=== PATIENT | female | born 1955 | race Caucasian/White ===

== ENCOUNTER 2018-09-07 05:32 | Observation (INO) ==
[2018-09-07] MEDS ORDERED: 0.9 % Sodium Chloride 1,000 ML IVC ONE (06:14)
--- NOTE | 2018-09-07 06:16 | Emergency Department Note ---
Disposition Clinical Impression: Vertigo, Bacteriuria with pyuria Disposition: Admitted As Inpatient Condition: Good Time of Disposition: 08:36 Dizziness HPI - General Chief Complaint: ED Dizziness Stated Complaint: dizziness/vomiting Time Seen by Provider: 09/07/18 06:03 Source: patient, family Mode of arrival: private vehicle Limitations: no limitations Nursing Notes Reviewed: Yes Vital Signs Reviewed: Yes - History of Present Illness HPI Narrative: Patient presents from home with family for eval of vertigo that began acutely at 4:00am. It woke her from sleep. She was unable to get out of bed initially, and when she did get up she began vomiting. Once the vomiting stopped and symptoms improved enough that she could get to the car, she was brought here. She has a dull, frontal headache. No other pain. She has had vertigo with vomiting in the past, 10 yrs ago when she had chemo. She has had headaches like this before as well. She denies chest pain, dyspnea, fever, chills, abdominal pain, diarrhea, dehydration, vision changes, syncopy, recent illness, infection or travel. Pt Subjective Complaint: dizziness Onset (ago): hour(s) (4am) Timing: sudden onset, now resolved Description: "room spinning" History of similar episodes: Yes (10 yrs ago during chemotherapy) History of trauma: No Severity: severe, now resolved Improves with: nothing ("It just got better") Worsens with: movement (It was worse when trying to move or get up) Associated symptoms: Reports: nausea, vomiting (Once able to get out of bed, began vomiting. Had 3 episodes of non-bilious, non-bloody emesis.). Denies: chest pain, confusion, diaphoresis, fever, chills, malaise, rash, shortness of breath, syncope, weakness, vision changes, palpitations, other - Related Data Home Medications Medication Instructions Recorded Confirmed Lisinopril [Zestril] 10 mg PO DAILY 09/07/18 09/07/18 Vilazodone HCl [Viibryd] 20 mg PO DAILY 09/07/18 09/07/18 Allergies Allergy/AdvReac Type Severity Reaction Status Date / Time Cefprozil [From Cefzil] Allergy Hives Verified 09/07/18 05:45 cephalexin [From Keflex] Allergy Hives Verified 09/07/18 05:45 All systems ED: reviewed and negative except as stated. Review of Systems: As Per HPI Constitutional: Denies: fever, chills, weakness, night sweats Eyes: Denies: eye pain, eye discharge, vision change ENT ED: Denies: ear pain, throat pain, hearing loss, congestion, dysphagia Cardiovascular: Denies: chest pain, palpitations, dyspnea on exertion, orthopnea, edema, syncope Respiratory: Denies: cough, dyspnea, wheezes, hemoptysis Gastrointestinal: Reports: as per HPI, nausea (resolved), vomiting (resolved). Denies: abdominal pain, diarrhea, constipation, hematemesis Genitourinary: Denies: urgency, dysuria, frequency Musculoskeletal: Reports: joint swelling (mild, right ankle - Fx 9 weeks ago), arthralgia (Mild, right ankle), other ("Right thigh is still a little sore, but much better" - DVT 6 weeks ago - Xarelto x 4 weeks then told to stop). Denies: back pain, neck pain Integumentary: Denies: rash, lesions Neurological: Reports: as per HPI, headache, vertigo (no resolved). Denies: weakness, numbness, paresthesias, confusion, abnormal gait Endocrine: Denies: fatigue Past Medical History - Past Medical History Attestation: Yes The following information was validated with the patient. Source: patient Medical history: Reports: cancer (Breast - 10yrs ago; in remission), DVT, hy perlipidemia (Stopped Atorvastatin 2 weeks ago due to leg cramps), hypertension, pulmonary embolus, other Surgical history: Reports: non-contributory Psychiatric history: Reports: no psych history SCRUMMASTER history: Reports: bilateral tubal ligation - Social History Smoking Status: Never smoker Smokeless Tobacco Status: No Alcohol use: Reports: none Drug use: Reports: none Physical Exam - General Limitations: no limitations General appearance: alert, in no apparent distress - Head Head exam: atraumatic, normocephalic, normal inspection - Eye Eye exam: Present: normal appearance, PERRL, EOMI. Absent: scleral icterus, conjunctival injection, nystagmus, miosis, mydriasis, periorbital swelling, periorbital tenderness - ENT ENT exam: normal exam, normal oropharynx, mucous membranes moist - Neck Neck exam: Present: normal inspection, full ROM, trachea midline. Absent: tenderness, meningismus, lymphadenopathy - Expanded Neck Exam Neck exam focused ED: Absent: anterior neck swelling, thyroid enlargement, JVD, carotid bruit - Respiratory Respiratory exam: Present: normal lung sounds bilaterally. Absent: respiratory distress, wheezes, stridor - Cardiovascular Cardiovascular exam: Present: regular rate, normal rhythm, normal heart sounds - Abdominal Exam Abdominal exam: Present: soft, Non-Tender. Absent: distention, guarding, rebound, mass - Extremities Exam Extremities exam: Present: full ROM, normal capillary refill, joint swelling (mild, right ankle). Absent: calf tenderness - Back Exam Back exam: Present: normal inspection - Neurological Exam Neurological exam: Present: alert, oriented X3, CN II-XII intact, other (Patient felt very dizzy when she stood up for gait assessment and Romberg. Unable to assess at this time.). Absent: motor sensory deficit - Expanded Neurological Exam Patient oriented to: Present: person, place, time Speech: Present: fluid speech Cranial nerves: EOM function (II, III, IV, ): Normal, facial sensation (V): Normal, facial palsy (VII): Normal, gag reflex (IX): Normal, spinal accessory function (XI): Normal, tongue deviation (XII): Normal Cerebellar function: finger to nose: Normal, heel to hwang: Normal Motor strength - LUE: 5/5 Motor strength - RUE: 5/5 Motor strength - LLE: 5/5 Motor strength - RLE: 5/5 Upper motor neuron exam: nadia neglect: Absent bilaterally, pronator drift: Absent bilaterally, sensory extinction: Absent bilaterally Sensory exam upper extremity: light touch: Normal Sensory exam lower extremity: light touch: Normal Coma Scale Eye Opening: Spontaneous Coma Scale Motor Response: Obeys Commands Coma Scale Verbal Response: Oriented Coma Scale Total: 15 - Psychiatric Psychiatric exam: Present: normal affect, normal mood - Skin Skin exam: Present: warm, dry, intact, normal color Course Course Narrative: Patient arrived via private auto. She was brought by family. She was able to ambulate from the parking lot into the emergency department but felt very dizzy doing so. She was brought back to room three and triaged. I arrived for shift at 6 AM and immediately went to see the patient. She had been in the emergency department 26 minutes upon my arrival. She is resting comfortably on the bed and states that vertigo has resolved. It got better after lying down for several minutes. She has a dull frontal headache that does not radiate. It is similar to prior headaches. It came on gradually just prior to arrival. It is not the worst headache of life. During the exam, I helped the patient to a standing position for gait assessment and Romberg testing. Upon standing, she felt very dizzy and wanted to sit back down. This portion of the neuro exam unable to be completed at this time. A few minutes after lying back down she began to feel better. IV fluids. Labs, meds, EKG have been ordered. Case discussed with Dr. Deleon - overnight attending - at 06:16. Discussed advanced betty ging; specifically, MR of brain. He recommends ordering an non-con CT of the head. This has been ordered. Case discussed with Dr. Eun Finley. He has had face to face time with the patient and agrees with the assessment and plan. Patient feeling better as long as she is reclined on bed. When she tries to get up, she feels dizzy - not as vertiginous as this morning, but "dizzy and off balance". Headache is better. No nausea or vomiting. Vitals stable normal. Will admit for further eval and treatment. - Reevaluation(s) Reevaluation #1: Patient feeling better, but still feels "Very dizzy" when trying to get up and walk. CT head is normal per radiologist. Vitals stable. Hospitalist paged for admission. Time: 08:03 - Consultations Consultation #1: Case discussed with Dr. Kemp. She has evaluated the patient and is requesting MRI. This has been ordered. Patient accepted for admission. Time: 08:36 Vital Signs Temperature 97.7 F 09/07/18 05:48 Pulse Rate 74 09/07/18 05:48 Respiratory Rate 20 09/07/18 05:48 Blood Pressure 144/80 09/07/18 05:48 O2 Sat by Pulse Oximetry 100 09/07/18 05:48 Temperature 97.7 F 09/07/18 05:58 Pulse Rate 74 09/07/18 06:40 Respiratory Rate 20 09/07/18 05:58 Blood Pressure 132/85 09/07/18 06:40 O2 Sat by Pulse Oximetry 100 09/07/18 05:58 Oxygen Delivery Oxygen Delivery Room Air Dizziness - Medical Records Medical records reviewed: Yes I reviewed the patient's medical records. - Lab Data Result diagrams: 09/07/18 06:18 09/07/18 06:18 Lab Results 09/07/18 09/07/18 09/07/18 Range/Units 06:18 06:18 06:55 WBC 5.9 (4.3-11.1) K/mcL RBC 4.01 (3.82-4.97) M/mcL Hgb 12.6 (11.5-15.4) g/dL Hct 36.9 (35.3-44.9) % MCV 92.0 (83.0-100.0) fL MCH 31.4 (28.0-33.3) pg MCHC 34.1 (31.6-35.5) g/dL RDW 12.6 (11.5-14.5) % Plt Count 188 (140-400) K/mcL MPV 9.6 (9.4-12.4) fL Immature Gran % 0.5 (0-4) % Seg Neutrophils % 65.5 % Lymphocytes % 24.2 % Monocytes % 7.3 % Eosinophils % 2.0 % Basophils % 0.5 % Neutrophils # 3.9 (1.6-8.9) K/mcL Lymphocytes # 1.4 (0.6-4.6) K/mcL Monocytes # 0.4 (0.0-1.3) K/mcL Eosinophils # 0.1 (0.0-0.6) K/mcL Basophils # 0.0 (0.0-0.2) K/mcL Sodium 140 (136-145) mEq/L Potassium 4.2 (3.5-5.1) mEq/L Chloride 109 H (98-107) mEq/L Carbon Dioxide 20 L (23-29) mEq/L BUN 23 (8-23) mg/dL Creatinine 1.18 (0.60-1.20) mg/dL Est GFR ( Amer) 56 L (> 60) Est GFR (Non-Af Amer) 46 L (> 60) BUN/Creatinine Ratio 19 (6-26) Glucose 102 (70-105) mg/dL Calculated Osmolality 294 (280-300) Calcium 9.0 (8.6-10.3) mg/dL Total Bilirubin 0.8 (0.3-1.0) mg/dL AST 26 (13-39) Units/L ALT 15 (7-52) Units/L Alkaline Phosphatase 55 (34-104) Units/L Troponin I < 0.03 (< 0.04) ng/mL Serum Total Protein 6.2 L (6.4-8.9) g/dL Albumin 4.0 (3.5-5.7) g/dL Globulin 2.2 L (2.4-3.5) g/dL Albumin/Globulin Ratio 1.8 (1.1-2.2) Urine Color Yellow (Yellow) Urine Clarity Clear (Clear) Urine pH 6.0 (5.0-8.0) pH Units Ur Specific [place] 1.009 L (1.010-1.025) Urine Protein Negative (Neg-Trace) mg/dL Urine Glucose (UA) Normal (Normal) mg/dL Urine Ketones Negative (Negative) mg/dL Urine Blood Negative (Negative) Urine Nitrite Negative (Negative) Urine Bilirubin Negative (Negative) Urine Urobilinogen Normal (Normal) mg/dL Ur Leukocyte Esterase Trace H (Negative) Urine Microscopic RBC 0-3 (0-3) per hpf Urine Microscopic WBC 5-15 H (0-3) per hpf Ur Squamous Epith Cells Many H (None-Few) per lpf Urine Bacteria Few (None-Few) per hpf Hyaline Casts None Seen (None-Few) per lpf Ur Culture Indicated? YES A (NO) - Radiology Data Radiology results reviewed: Yes I reviewed the patient's radiology results. Chest X-Ray 09/07/18 06:14 IMPRESSION: No acute cardiopulmonary findings. D/ / Dahlia Andrade MD / Dahlia Andrade MD Interpreting Provider: Dahlia Andrade MD Head CT 09/07/18 06:25 IMPRESSION: 1.No acute intracranial abnormality. D/ / Delfin Burleson MD / Delfin Burleson MD Interpreting Provider: Delfin Burleson MD - EKG Data EKG attestation: Yes I reviewed and interpreted this EKG. EKG shows normal: sinus rhythm, intervals Rate: normal Rhythm: NSR [place]/QRS: left axis deviation, LAHB/LAFB When compared to previous EKG there are: no significant changes Interpretation: no acute changes, unchanged when compared to prior tracing (date) Attestation Statement - Attestation Attestation: I, Ciro Finley, examined this patient and my medical decision-making was reviewed with the COLD MILL OPERATOR/PA/Advanced Practice Nurse/Resident Physician. I agree with the documented findings, disposition and treatment plan as described except to the extent set forth below. 63-year-old female presents emergency Department with concerns of acute onset dizziness associated with nausea and vomiting. Patient is unable to ambulate in the emergency department. Patient was at her baseline health last night, woke up with her symptoms. Denies chest pain, shortness breath, palpitations or other associated symptoms. Patient does not have focal neurologic deficits on exam. CT of the head was negative for acute fracture or intracranial hemorrhage or evidence of obvious CVA. Patient is outside of the window for TPA. She will be admitted to the hospitalist for further care and evaluation of possible posterior CVA.
[2018-09-07] MEDS ORDERED: Promethazine 12.5 MG in 0.9 % Sodium Chloride 50 ML IVPB ONE (06:26)
[2018-09-07 06:45] LABS: Basophils % 0.5 %; Eosinophils # 0.1 K/mcL (0.0-0.6); Hematocrit 36.9 % (35.3-44.9); Hemoglobin 12.6 g/dL (11.5-15.4); Immature Granulocytes % 0.5 % (0-4); Lymphocytes # 1.4 K/mcL (0.6-4.6); Lymphocytes % 24.2 %; Mean Corpuscular HGB Conc 34.1 g/dL (31.6-35.5); Mean Corpuscular Hemoglobin 31.4 pg (28.0-33.3); Mean Platelet Volume 9.6 fL (9.4-12.4); Monocytes # 0.4 K/mcL (0.0-1.3); Monocytes % 7.3 %; Neutrophils # 3.9 K/mcL (1.6-8.9); Platelet Count 188 K/mcL (140-400); Red Blood Count 4.01 M/mcL (3.82-4.97); Red Cell Distribution Width 12.6 % (11.5-14.5); Segmented Neutrophils % 65.5 %; White Blood Count 5.9 K/mcL (4.3-11.1)
[2018-09-07 07:04] LABS: Alanine Aminotransferase 15 Units/L (7-52); Albumin/Globulin Ratio 1.8 (1.1-2.2); Alkaline Phosphatase 55 Units/L (34-104); Aspartate Amino Transferase 26 Units/L (13-39); BUN/Creatinine Ratio 19 (6-26); Bilirubin,Total 0.8 mg/dL (0.3-1.0); Blood Urea Nitrogen 23 mg/dL (8-23); Carbon Dioxide 20 mEq/L (23-29); Chloride 109 mEq/L (98-107); Globulin 2.2 g/dL (2.4-3.5); Glucose 102 mg/dL (70-105); Osmolality,Calculated 294 (280-300); Potassium 4.2 mEq/L (3.5-5.1); Sodium 140 mEq/L (136-145); Total Protein 6.2 g/dL (6.4-8.9); Troponin I < 0.03 ng/mL (< 0.04); eGFR For African Americans 56 (> 60); eGFR For Non-African Americans 46 (> 60)
[2018-09-07 07:08] LABS: Bilirubin,Urine Negative (Negative); Blood,Urine Negative (Negative); Clarity,Urine Clear (Clear); Color,Urine Yellow (Yellow); Glucose,Urine (UA) Normal (Normal); Ketones,Urine Negative (Negative); Leukocyte Esterase,Urine Trace (Negative); Nitrite,Urine Negative (Negative); Protein,Urine Negative (Neg-Trace); Specific Gravity,Urine 1.009 (1.010-1.025); Urobilinogen,Urine Normal (Normal)
[2018-09-07 07:12] LABS: Bacteria,Urine Few per hpf (None-Few); Hyaline Casts,Urine None Seen per lpf (None-Few); RBC,Urine 0-3 per hpf (0-3); Squamous Epithelial Cell,Urine Many per lpf (None-Few)
[2018-09-07] MEDS ORDERED: Gadolinium Contrast Agent (WT Based) IV PRN (08:30)
[2018-09-07 08:37] LABS: Magnesium 2.1 mg/dL (1.6-2.6)
[2018-09-07] MEDS ORDERED: *HR* LORazepam 2 MG/ML VIAL IVP ONE ×3 (08:39→21:33)
--- NOTE | 2018-09-07 08:50 | Internal Med History&Physical ---
<Alber Hull - Last Filed: 09/07/18 08:47> Date of Encounter: 09/07/18 Time of Encounter: 08:47 Internal Medicine - H&P: HPI Chief complaint: dizziness/vomiting Admitted From: Emergency Dept Plans for Post Hospital Care: Home History of present illness: Ms. Mason is a 63 year old female with PMhx of HTN, hx of breast cancer s/p left mastectomy with chemoradiation, currently in remission, DVT, hyperli pidemia, hypertension. Patient states she woke up this morning around 4 am with severe dizziness and nausea with vomiting x2. She states that she was barely able to get up and go to the bathroom during her episodes of vomiting. patient states she has had dizziness in the past. patient states she has history of DVT and was previously on Xarelto, that she stopped last Thursday. patient also states she had similar episode of severe nasuea when she was on an airplane in the past. she denies fevers, chills, chest pain, cough, hematuria, hematochezia, melena. Past Med Surg Social Fam HX - Past Medical History Medical history: cancer (Breast - 10yrs ago; in remission), DVT, hyperlipidemia (Stopped Atorvastatin 2 weeks ago due to leg cramps), hypertension, pulmonary embolus, other Additional medical history: breast cancer w/left mastectomy Psychiatric history: no psych history - Past Surgical History Surgical History: non-contributory Additional surgical history: filter for blood clots, left breast removal and lymph nodes, right foot, left hand, tumor benign removed left eye - Social History Smoking Status: Never smoker Smokeless Tobacco Status: No Alcohol use: none Drug use: none Internal Medicine - H&P: Meds Lisinopril [Zestril] 10 mg PO DAILY 09/07/18 [History] Vilazodone HCl [Viibryd] 20 mg PO DAILY 09/07/18 [History] Allergy/AdvReac Type Severity Reaction Status Date / Time Cefprozil [From Cefzil] Allergy Hives Verified 09/07/18 05:45 cephalexin [From Keflex] Allergy Hives Verified 09/07/18 05:45 All Systems PM: A 10-system review of systems was performed and is negative for pertinent findings except as documented above in the HPI. - Constitutional Constitutional: as per HPI - EENT Eyes: as per HPI Ears: as per HPI Nose, mouth and throat: as per HPI - Breasts Breasts: as per HPI - Cardiovascular Cardiovascular ROS IM: as per HPI - Respiratory Respiratory: as per HPI - Gastrointestinal Gastrointestinal: as per HPI - Genitourinary Genitourinary: as per HPI Menstruation: as per HPI - Musculoskeletal Musculoskeletal ROS IM: as per HPI - Integumentary Integumentary IM: as per HPI - Neurological Neurological ROS: as per HPI - Psychiatric Psychiatric: as per HPI - Endocrine Endocrine IM: as per HPI - Hematologic/Lymphatic Hematologic/Lymphatic: as per HPI - Allergic/Immunologic Allergic/Immunologic: as per HPI - Constitutional Vitals: Temp Pulse Resp BP Pulse Ox 97.7 F 74 20 132/85 100 09/07/18 05:58 09/07/18 06:40 09/07/18 05:58 09/07/18 06:40 09/07/18 05:58 General appearance: Present: A&O X 3, pleasant, no acute distress, answers questions appropriately Exam: alert and oriented x3, pleasant, no acute distress - Neck Neck exam general surgery: Present: supple, trachea midline - Respiratory Respiratory exam: Present: CTAB - Cardiovascular Cardiovascular exam: Present: RRR, +S1, +S2. Absent: gallop, rubs, tachycardia - GI/Abdominal GI/Abdominal exam: Present: normal bowel sounds, soft. Absent: distended, tenderness - Extremities Exam Extremities exam: Absent: full ROM, pedal edema - Neurological Exam Neurological exam: Present: alert, CN II-XII intact, oriented X3, no focal deficits, strengths equal and symetr throughout. Absent: motor sensory deficit, facial droop, speech deficit - Psychiatric Psychiatric exam: Present: normal affect, normal mood - Skin Skin exam: Present: dry. Absent: cyanosis, petechiae Internal Med - H&P Results - Labs CBC & Chem 7: 09/07/18 06:18 09/07/18 06:18 Labs: Short CBC 09/07/18 Range/Units 06:18 WBC 5.9 (4.3-11.1) K/mcL Hgb 12.6 (11.5-15.4) g/dL Hct 36.9 (35.3-44.9) % Plt Count 188 (140-400) K/mcL Neutrophils # 3.9 (1.6-8.9) K/mcL BMP 09/07/18 06:18 Sodium 140 Potassium 4.2 Chloride 109 H Carbon Dioxide 20 L BUN 23 Creatinine 1.18 Glucose 102 Calcium 9.0 Cardiac Enzymes 09/07/18 Range/Units 06:18 Troponin I < 0.03 (< 0.04) ng/mL Liver Function 09/07/18 Range/Units 06:18 Total Bilirubin 0.8 (0.3-1.0) mg/dL AST 26 (13-39) Units/L ALT 15 (7-52) Units/L Alkaline Phosphatase 55 (34-104) Units/L Albumin 4.0 (3.5-5.7) g/dL Urine 09/07/18 Range/Units 06:55 Urine Color Yellow (Yellow) Urine Clarity Clear (Clear) Urine pH 6.0 (5.0-8.0) pH Units Ur Specific [place] 1.009 L (1.010-1.025) Urine Protein Negative (Neg-Trace) mg/dL Urine Glucose (UA) Normal (Normal) mg/dL - Impressions ITS Impressions Chest X-Ray 09/07/18 06:14 IMPRESSION: No acute cardiopulmonary findings. D/ / Dahlia Andrade MD / Dahlia Andrade MD Interpreting Provider: Dahlia Andrade MD Head CT 09/07/18 06:25 IMPRESSION: 1.No acute intracranial abnormality. D/ / Delfin Burleson MD / Delfin Burleson MD Interpreting Provider: Delfin Burleson MD - Assessment and Plan (1) Dizziness Current Visit: Yes Status: Acute Assessment and plan: patient reports waking up this morning with significant dizziness, room spinning sensation and could barely get up out of bed to walk to the bathroom. stated that this has happened before but not to this extent. her symptoms are likely consistent with vertigo. Plan: will get brain MRI to rule out space occupying lesions. wait for results of brain MRI, consult Neurology if necessary meclizine nausea control if continued vomiting, will start IV fluids. (2) Hypertension Current Visit: Yes Status: Acute Assessment and plan: continue lisinopril-HCTZ Qualifiers: Hypertension type: unspecified Qualified Code(s): I10 - Essential (primary) hypertension (3) Hyperlipidemia Current Visit: Yes Status: Acute Assessment and plan: continue statin Qualifiers: Hyperlipidemia type: unspecified Qualified Code(s): E78.5 - Hyperlipidemia, unspecified (4) DVT prophylaxis Current Visit: Yes Status: Acute Assessment and plan: heparin SQ - Time Spent With Patient Total time spent is greater than 50% in coordination of care (as documented) at patient's floor/unit and/or counseling patient: <Shawna Archer - Last Filed: 09/08/18 07:57> Date of Encounter: 09/07/18 Internal Medicine - H&P: HPI History of present illness: Ms. Mason is a 63 year old female All Systems PM: A 10-system review of systems was performed and is negative for pertinent findings except as documented above in the HPI. - Constitutional Vitals: Temp Pulse Resp BP Pulse Ox 97.9 F 79 16 127/84 95 09/08/18 06:29 09/08/18 06:29 09/08/18 06:29 09/08/18 06:29 09/08/18 06:29 Internal Med - H&P Results - Labs CBC & Chem 7: 09/07/18 06:18 09/07/18 06:18 Labs: BMP 09/07/18 06:18 Sodium 140 Potassium 4.2 Chloride 109 H Carbon Dioxide 20 L BUN 23 Creatinine 1.18 Glucose 102 Calcium 9.0 Cardiac Enzymes 09/07/18 Range/Units 06:18 Troponin I < 0.03 (< 0.04) ng/mL Liver Function 09/07/18 Range/Units 06:18 Total Bilirubin 0.8 (0.3-1.0) mg/dL AST 26 (13-39) Units/L ALT 15 (7-52) Units/L Alkaline Phosphatase 55 (34-104) Units/L Albumin 4.0 (3.5-5.7) g/dL - Impressions ITS Impressions Chest X-Ray 09/07/18 06:14 IMPRESSION: No acute cardiopulmonary findings. D/ / Dahlia Andrade MD / Dahlia Andrade MD Interpreting Provider: Dahlia Andrade MD Head CT 09/07/18 06:25 IMPRESSION: 1.No acute intracranial abnormality. D/ / Delfin Burleson MD / Delfin Burleson MD Interpreting Provider: Delfin Burleson MD Brain MRI 09/07/18 08:30 IMPRESSION: Unremarkable exam D/ / Warren Avitia MD / Warren Avitia MD Interpreting Provider: Warren Avitia MD - Time Spent With Patient Total time spent is greater than 50% in coordination of care (as documented) at patient's floor/unit and/or counseling patient: - Attending Attestation I performed a history and physical examination of the patient and discussed his management with the resident. I reviewed the residents note and agree with the documented findings and plan of care.
[2018-09-07] MEDS ORDERED: Acetaminophen 325 MG TABLET PO PRN (09:20)
[2018-09-07] MEDS ORDERED: *HR* Promethazine 25 MG/ML VIAL IVP PRN (09:20)
[2018-09-07] MEDS ORDERED: Ondansetron ODT 4 MG TAB.RAPDIS SL PRN (09:20)
[2018-09-07] MEDS ORDERED: Naloxone 0.4 MG/ML INJ IVP PRN (09:20)
--- NOTE | 2018-09-07 10:28 | Electrocardiograph Report ---
[place] [id number] Test Date: 2018-09-07 Pat Name: Kellee Mason Department: EXAM3 Room: 3B12 Gender: F Public Safety Telecommunicator: : 1955 Requested By: Sharla Adams Order Number: [id number] Reading MD: Nancy Galvan Measurements Intervals [place] Rate: 74 P: -36 [place]: 208 QRS: -51 QRSD: 83 T: 29 QT: 371 QTc: 412 Interpretive Statements Sinus rhythm LAD, consider left anterior fascicular block Probable anteroseptal infarct, old Electronically Signed On 09-07-2018 10:26:30 EDT by Nancy Galvan
[2018-09-07] MEDS: *HR* Heparin 5,000 UNIT/ML VIAL SQ SCH (18:25)
[2018-09-08] MEDS: *HR* Heparin 5,000 UNIT/ML VIAL SQ SCH (05:24)
[2018-09-08 06:33] VITALS: BP 127/84
--- NOTE | 2018-09-08 11:37 | Discharge Summary ---
- NOTES TO OUTPATIENT PROVIDER Notes to Outpatient Provider: f/u with PCP in one week. f/u with ENT in one week. Date of Encounter: 09/08/18 Time of Encounter: 11:00 - Discharge Diagnosis (1) Vertigo Priority: Primary Status: Acute (2) Dizziness Priority: Primary Status: Acute (3) Hyperlipidemia Priority: Secondary Status: Acute Qualifiers: Hyperlipidemia type: unspecified Qualified Code(s): E78.5 - Hyperlipidemia, unspecified (4) Hypertension Priority: Secondary Status: Acute Qualifiers: Hypertension type: unspecified Qualified Code(s): I10 - Essential (primary) hypertension Hospital course: Ms. Mason is a 63 year old female with PMhx of HTN, hx of breast cancer s/p left mastectomy with chemoradiation, currently in remission, DVT, hyperlipidemia, hypertension pt presented to ER with severe dizziness and nausea with vomiting x2. She stated that she was barely able to get up and go to the bathroom during her episodes of vomiting. patient states she has had dizziness in the past. Patient also states she had similar episode of severe [place] when she was on an airplane in the past. Patient was admitted in the hospital and placed on personnel monitor. She was started on schedule meclizine and IV hydration. Her UA was abnormal , however her Urine cx came back as no growth. Patient stated her symptoms improved today. She did go for brain MRI which came back is negative for ischemia/infarction. Her symptoms are consistent with peripheral benign positional vertigo. So recommend to use Meclizine as needed and f/u with ENT as an out pt. - Time Spent with Patient Total time spent providing and/or coordinating discharge services: - Discharge Medications Prescriptions: New Meclizine [Antivert] 12.5 mg PO TID PRN #20 tablet PRN Reason: Dizziness Continued Lisinopril [Zestril] 10 mg PO DAILY Vilazodone HCl [Viibryd] 20 mg PO DAILY Home Medications: Lisinopril [Zestril] 10 mg PO DAILY 09/07/18 [History] Vilazodone HCl [Viibryd] 20 mg PO DAILY 09/07/18 [History] Meclizine [Antivert] 12.5 mg PO TID PRN #20 tablet 09/08/18 [Rx] Allergies/Adverse Reactions: Allergy/AdvReac Type Severity Reaction Status Date / Time Cefprozil [From Cefzil] Allergy Hives Verified 09/07/18 05:45 cephalexin [From Keflex] Allergy Hives Verified 09/07/18 05:45 Date of admission: 09/07/18 08:39 Primary care physician: Tarun Ni DO - Constitutional Vitals: Temp Pulse Resp BP Pulse Ox 97.9 F 79 16 127/84 95 09/08/18 06:29 09/08/18 06:29 09/08/18 06:29 09/08/18 06:29 09/08/18 06:29 General appearance: Present: A&O X 3, pleasant, no acute distress, answers questions appropriately Exam: Gen: Alert, awake, Oriented to time,place and person Chest: Diminished breath sounds B/L, No wheezing, No crackles, No rales Heart: S1S2+ RRR No murmurs Abd: Soft, NT, BS +, No organomegaly Ext: No edema, pulses are palpable, No calf tenderness Neuro : No acute focal neuro deficits noticed Skin: No rash. - Patient Status Disposition: Home, Self-Care Condition: Good Overall status at discharge: patient is back to baseline - Discharge Instructions Follow Up With: Tarun Ni DO [Primary Care Provider] - - Diet and Activity Activity: increase activity as tolerated Diet: low salt diet
== END 2018-09-08 13:01 | disposition home or self-care (01) ==
LOC: 3BNU 05:32 → EMEROOARM 05:32 → 3BNU 11:33
PROVIDERS: ADMIT Internal Medicine Nephrology; ATTEND Internal Medicine Nephrology